=== PATIENT | female | born 1985 | race Caucasian/White ===

== ENCOUNTER → 2021-06-22 | Outpatient (CLI) | payer BC ==
--- NOTE | 2021-06-22 07:42 | US ---
EXAMINATION TYPE: US gallbladder DATE OF EXAM: 06/22/2021 COMPARISON: NONE CLINICAL HISTORY: R10.11 RUQ pain. elevated labs EXAM MEASUREMENTS: Liver Length: 12.4 cm Gallbladder Wall: .2 cm CBD: 0 .4 cm Right Kidney: 5.3 x 5.8 x 3.5 cm Pancreas: wnl as seen Liver: wnl Gallbladder: wnl Evidence for sonographic Colvin's sign: no CBD: wnl Right Kidney: Limited due to over lyling bowel gas is no evident hydronephrosis. Visualized inferior vena cava and abdominal aorta are normal. IMPRESSION: There are some limitations the exam.
== END | disposition home or self-care (01) ==
LOC: RADUSWWP 07:09
PROVIDERS: ATTEND Family Medicine
DX: R10.11 Right upper quadrant pain (principal)
CPT/HCPCS: 76705

== ENCOUNTER 2022-07-30 14:47 | Day surgery (SDC) | payer BC ==
[~2022-07-30 14:47] MED LIST: LACTATED RINGERS 1,000 ML IV SCH; LIDOCAINE 1% (10MG/ML) FOR IV START INTRADERMA PRN
[2022-07-30 15:14] VITALS: RESP 16; TEMP 97.4
[2022-07-30] MEDS ORDERED: PROPOFOL 10 MG/ML 20 ML VIAL IV ONE (15:21)
[2022-07-30] MEDS ORDERED: LIDOCAINE 2% INJ 20 MG/ML (2 ML VIAL) ONE (15:21)
--- NOTE | 2022-07-30 15:44 | P.PCN ---
Date of Procedure: 07/30/22 Procedure(s) Performed: BRIEF HISTORY: Patient is a 36-year-old, pleasant, white female scheduled for an upper endoscopy as a part of evaluation of intermittent dysphagia to solids for the last 1 year duration. Usually has solid food dysphagia and happens once or twice a week. Does have long-standing history of GERD and is currently and omeprazole 20 mg daily. She is scheduled for an upper endoscopy with a possible dilation today. PROCEDURE PERFORMED: Esophagogastroduodenoscopy with biopsy and dilation. PREOPERATIVE DIAGNOSIS: Intermittent dysphagia to solids and long-standing history of GERD]. IV sedation per anesthesia. PROCEDURE: After informed consent was obtained, the patient was brought into the endoscopy unit. IV sedation was administered by Anesthesia under continuous monitoring. Initially the Olympus GIF-140 video endoscope was inserted into the mouth. Esophagus intubated without any difficulty. It was gradually advanced into the stomach and duodenum and carefully examined. The bulb and the second part of the duodenum appeared normal. The scope at this time was withdrawn to the stomach, adequately insufflated with air, and upon careful examination, mucosa of the antrum, body, cardia and the fundus appeared normal. The scope was then withdrawn into the esophagus. All hiatal hernia noted. The GE junction was located at 39 cm from the incisors. The distal esophageal Schatzki's ring identified that was dilated using 18-20 mm TTS balloon in a sequential fashion for 30 seconds. The rest of the esophagus appeared normal. There were no erosions or ulcerations seen, multiple biopsies were done from mid and distal esophagus and the patient tolerated the procedure well. IMPRESSION: 1. Mild patent distal esophageal Schatzki's ring status post balloon dilation using 18-20 mm TTS balloon. 2. Small hiatal hernia. RECOMMENDATIONS: The findings of this examination were discussed with the patient as well as her family. She was advised to follow with the biopsy results. She will continue with omeprazole 40 mg daily and follow antireflux measures. She'll be seen in office in 3-4 weeks..
[2022-07-30 16:01] VITALS: BP 112/73; PULSE 73
== END 2022-07-30 16:22 | disposition home or self-care (01) ==
LOC: ORWHC2ENDO 14:47
PROVIDERS: ATTEND Internal Medicine Gastroenterology
DX: K44.9 Diaphragmatic hernia without obstruction or gangrene (principal); K22.2 Esophageal obstruction; K21.00 Gastro-esophageal reflux disease with esophagitis, without bleeding; Z79.899 Other long term (current) drug therapy; E03.9 Hypothyroidism, unspecified; F31.9 Bipolar disorder, unspecified; F41.9 Anxiety disorder, unspecified; Z79.890 Hormone replacement therapy
CPT/HCPCS: 81025; 88305; 43239; 43249; J2704; J2001; C1726

== ENCOUNTER → 2023-05-06 | Outpatient (CLI) | payer BC ==
--- NOTE | 2023-05-09 20:26 | MM ---
Reason for Exam: Screening (asymptomatic). Baseline mammogram. Patient History: Menarche at age 13. First Full-Term at age 31. Late child-bearing (after 31). Premenopausal. Maternal grandmother had breast cancer at or over age 50. Maternal aunt had breast cancer. Last menstrual period: 04/27/2023 Risk Values: Elisa 5 year model risk: 0.5%. NCI Lifetime model risk: 13.8%. Prior Study Comparison: Patient's first Mammogram. Tissue Density: There are scattered fibroglandular densities. Findings: Analyzed By CAD. No significant mass, suspicious microcalcification, or other discrete abnormality is seen. Overall Assessment: Negative, BI-RAD 1 Management: Screening Mammogram of both breasts in 1 year. . Patient should continue monthly self-breast exams. A clinical breast exam by your physician is recommended on an annual basis. This exam should not preclude additional follow-up of suspicious palpable abnormalities. Note on Elisa scores and lifetime risk: 1. A Elisa score greater than 3% is considered moderate risk. If this is the case, consider specialist referral to assess eligibility for a risk reducing agent. 2. If overall lifetime risk for the development of breast cancer is 20% or higher, the patient may qualify for future screening with alternating mammogram and breast MRI. Electronically signed and approved by: Leonid Bolaños M.D. Radiologist
== END | disposition home or self-care (01) ==
LOC: RADMAMWWP 07:41
PROVIDERS: ATTEND Obstetrics & Gynecology
DX: Z12.31 Encounter for screening mammogram for malignant neoplasm of breast (principal); Z80.3 Family history of malignant neoplasm of breast
CPT/HCPCS: 77063; 77067

== ENCOUNTER → 2023-11-14 | Outpatient (CLI) | payer BC ==
--- NOTE | 2023-11-14 09:59 | US ---
EXAMINATION TYPE: US liver DATE OF EXAM: 11/14/2023 COMPARISON: NONE CLINICAL INDICATION: Female, 37 years old with history of R19.81 ELEVATED CO2 LEVELS; abn labs, no sy mptoms TECHNIQUE: Multiple sonographic images of the right upper quadrant are obtained. FINDINGS: EXAM MEASUREMENTS: Liver Length: 14.6 cm Gallbladder Wall: 0.2 cm CBD: 0.6 cm Right Kidney: 9.3 x 4.2 x 4.9 cm Pancreas: wnl Liver: wnl Gallbladder: wnl Evidence for sonographic Colvin's sign: no CBD: wnl Right Kidney: wnl IMPRESSION: No evidence for acute process.
== END | disposition home or self-care (01) ==
LOC: RADUSWWP 07:28
PROVIDERS: ATTEND Family Medicine
DX: R79.81 Abnormal blood-gas level (principal)
CPT/HCPCS: 76705

== ENCOUNTER → 2024-04-10 | Outpatient (CLI) | payer OTHER ==
--- NOTE | 2024-04-10 09:21 | US ---
EXAMINATION TYPE: US gallbladder DATE OF EXAM: 04/10/2024 COMPARISON: US CLINICAL INDICATION: Female, 38 years old with history of R10.11 RUQ; Pt states RUQ pressure and occa sional pain TECHNIQUE: Grayscale and color Doppler imaging of the right upper quadrant was performed. FINDINGS: EXAM MEASUREMENTS: Liver Length: 14.3 cm Gallbladder Wall: 0.2 cm CBD: 0.5 cm Right Kidney: 9.4 x 3.9 x 4.7 cm LATIN PROFESSOR NOTES: Pancreas: wnl Liver: wnl Gallbladder: wnl Evidence for sonographic Colvin's sign: No CBD: wnl Right Kidney: No evidence of hydro, lower pole gassed out IMPRESSION: No evidence for acute process. [facility], , 04/10/2024 9:19 AM
== END | disposition home or self-care (01) ==
LOC: RADUSWWP 07:50
PROVIDERS: ATTEND Family Medicine
DX: R10.11 Right upper quadrant pain (principal)
CPT/HCPCS: 76705

== ENCOUNTER → 2024-05-10 | Outpatient (CLI) | payer OTHER ==
--- NOTE | 2024-05-11 11:13 | MR ---
EXAMINATION TYPE: MR abdomen wo/w con DATE OF EXAM: 05/10/2024 9:35 PM COMPARISON: 04/10/2024 CLINICAL INDICATION: Female, 38 years old with history of R77.2, R10.11; PHH, CA 19 test is elevated, abdominal pain TECHNIQUE: Multiplanar multi-sequence imaging was performed without contrast. Post contrast imaging was performed. Post IV contrast subtraction images were also submitted for review. IV Contrast: 7 mL Gadobutrol FINDINGS: LOWER CHEST: No gross irregularity. ABDOMEN Liver: No evidence for hepatic steatosis or cirrhosis. Gallbladder and Bile ducts: No evidence for ductal dilation, or biliary stricture or evidence of chol edocholithiasis. The gallbladder is within normal limits. Pancreas: No ductal dilation. No evidence for solid mass. The parenchyma enhances rather uniformly. T he parenchyma is homogenous on diffusion-weighted, T2, T1 and postcontrast T1-weighted imaging. Spleen: Normal for size. Adrenal glands: Unremarkable. Kidneys: No evidence for obstructive uropathy. No suspicious renal masses. Stomach and Bowel: No evidence for bowel wall thickening or evidence for obstruction. Retroperitoneum/Peritoneum: No evidence of pneumoperitoneum or free fluid. Vasculature: No aortic aneurysm. Musculoskeletal: The osseous structures appear intact. Lymph Nodes: No gross evidence for lymphadenopathy. Abdominal wall: Unremarkable. IMPRESSION: No pancreatic mass visualized at this time, in the setting of elevated CA 19 consider close MRI imagi ng follow-up in 3 months. [facility], , 05/11/2024 11:10 AM
== END | disposition home or self-care (01) ==
LOC: RADMRIMAIN 21:15
PROVIDERS: ATTEND Family Medicine
DX: R77.2 Abnormality of alphafetoprotein (principal); R10.11 Right upper quadrant pain
CPT/HCPCS: 74183; A9585